=== PATIENT | male | born 1960 | race Two or more races ===

== ENCOUNTER 2019-07-19 11:22 | Emergency (ER) | payer OTHER ==
[~2019-07-19] VITALS: Ht 167.6 cm; Wt 77.1 kg
[2019-07-19] MEDS ORDERED: INTESTINEX680 M1 PO (20:35)
[2019-07-19] MEDS ORDERED: PEPCID AC20 MG PO (20:35)
== END 2019-07-19 21:38 | disposition home or self-care (01) ==
LOC: ER 11:22
DX: R10.32 Left lower quadrant pain (principal); K57.30 Diverticulosis of large intestine without perforation or abscess without bleeding; K29.00 Acute gastritis without bleeding